=== PATIENT | female | born 1970 | race African-American/Black ===

== ENCOUNTER 2017-06-06 23:56 | Emergency (ER) | payer BC ==
[2017-06-07] MEDS ORDERED: Ketorolac Tromethamine 60 MG/2 ML VIAL ONE (01:45)
[2017-06-07] MEDS ORDERED: Acetaminophen 500 MG TAB ONE (01:45)
[2017-06-07] MEDS ORDERED: Dexamethasone 10 MG/ML VIAL ONE (01:45)
--- NOTE | 2017-06-07 07:57 | RAD ---
THREE VIEWS LUMBAR SPINE: HISTORY: Low back pain for 2 weeks. FINDINGS: AP, lateral, and coned-down views lumbar spine were obtained. A small anterior osteophyte is seen at the L1 and L3 levels. No evidence of acute lumbar spine fractures or bony lesions seen. IMPRESSION: Mid lumbar changes of spondylosis. No evidence of acute lumbar spine pathology is seen. POS: MAURI
== END 2017-06-07 02:28 | disposition home or self-care (01) ==
LOC: ERS 23:56
DX: M62.830 Muscle spasm of back (principal); I10 Essential (primary) hypertension; E11.9 Type 2 diabetes mellitus without complications; M10.9 Gout, unspecified; X50.0XXA Overexertion from strenuous movement or load, initial encounter
CPT/HCPCS: 72100; 96372; J1100; J1885

== ENCOUNTER 2017-08-26 07:53 | Emergency (ER) | payer BC | END 2017-08-26 09:05 | disposition home or self-care (01) | LOC: ERS 07:53 | DX: S16.1XXA Strain of muscle, fascia and tendon at neck level, initial encounter (principal); E11.9 Type 2 diabetes mellitus without complications; I10 Essential (primary) hypertension; M10.9 Gout, unspecified; V89.2XXA Person injured in unspecified motor-vehicle accident, traffic, initial encounter | CPT/HCPCS: 99283 ==

== ENCOUNTER 2017-09-24 08:31 | Emergency (ER) | payer BC ==
[2017-09-24 09:53] LABS: #Basophils 0.1 thou/uL (0.0-0.2); #Eosinphils 0.1 thou/uL (0.0-0.7); #Lymphocytes 1.9 thou/uL (1.20-3.40); #Monocytes 0.3 thou/uL (0.11-0.59); #Neutrophils 2.3 thou/uL (1.40-6.50); %Basophils 1.1 % (0.0-1.0); %Eosinophils 1.2 % (0.0-10.0); %Lymphocytes 41.3 % (21.0-51.0); %Monocytes 7.4 % (0.0-10.0); Hemoglobin 11.6 g/dL (12.0-16.0); Mean Corpuscular HGB CONC 33.2 g/dL (32.0-36.0); Mean Corpuscular Hemoglobin 26.4 pg (27.0-31.0); Mean Corpuscular Volume 79.6 fL (78.0-98.0); Mean Platelet Volume 9.7 fL (7.4-10.4); Platelet Count 162 thou/uL (130-400); RBC Distribution Width 14.4 % (11.5-14.5); White Blood Cell (WBC) Count 4.6 thou/uL (4.8-10.8)
[2017-09-24] MEDS ORDERED: hydrALAZINE 20 MG/ML VIAL ONE (10:04)
[2017-09-24 10:10] LABS: ALT (SGPT) 8 U/L (8-55); AST (SGOT) 14 U/L (5-34); Alkaline Phosphatase 55 U/L (40-150); Anion Gap 15 mmol/L (10-20); BUN (Urea Nitrogen) 8 mg/dL (7.0-18.7); Bilirubin, Total 0.6 mg/dL (0.2-1.2); CK (CPK) 82 U/L (29-168); Calc. Creatinine Clearance 0 mL/min (70-130); Carbon Dioxide 23 mmol/L (22-29); Chloride 107 mmol/L (98-107); Estimated GFR-MDRD Greater than 90; Globulin 3.2 g/dL (2.4-3.5); Glucose 93 mg/dL (70-105); Lipase 22 U/L (8-78); Protein, Total 7.2 g/dL (6.0-8.3); Sodium 141 mmol/L (136-145)
[2017-09-24 10:14] LABS: CKMB 0.6 ng/mL (0-6.6); Troponin I Less than 0.010 ng/mL (< 0.028)
--- NOTE | 2017-09-24 10:24 | RAD ---
PORTABLE CHEST: Date: 09-24-17 Provided Clinical History: Dyspnea. FINDINGS: Cardiac silhouette appears enlarged which may be at least partially on the basis of portable techniqu e. No focal consolidation, pleural fluid, or pneumothorax apparent. Pulmonary vasculature appears wit hin normal limits. IMPRESSION: No evidence for an acute cardiopulmonary process. POS: H
== END 2017-09-24 11:06 | disposition home or self-care (01) ==
LOC: ERS 08:31
DX: R06.02 Shortness of breath (principal); E11.9 Type 2 diabetes mellitus without complications; I10 Essential (primary) hypertension
CPT/HCPCS: 71045; 80053; 82550; 82553; 83690; 83880; 84484; 85025; 93005; 96374; J0360

== ENCOUNTER 2024-11-22 05:59 | Day surgery (SDC) | payer BC ==
[2024-11-14 09:57] VITALS: BMI 34.7
[2024-11-22] MEDS ORDERED: LevoFLOXacin D5W 500 mg (100 mL) BAG ONE (08:24)
[2024-11-22] MEDS ORDERED: PROPOFOL 20 ML ONE ×2 (08:38→09:02)
[2024-11-22] MEDS ORDERED: Rocuronium Bromide 10 MG/ML (10ML VIAL) ONE (08:38)
[2024-11-22] MEDS ORDERED: Lidocaine 1% PF 5 ML VIAL ONE ×2 (08:38→09:18)
[2024-11-22] MEDS ORDERED: Ondansetron PF 4 MG/2 ML Vial ONE ×2 (09:27→11:11)
[2024-11-22] MEDS ORDERED: SUGAMMADEX SODIUM 200 MG/2 ML VIAL ONE (10:12)
== END 2024-11-22 12:52 | disposition home or self-care (01) ==
LOC: SDC 05:59
PROVIDERS: ATTEND Urology
DX: N20.0 Calculus of kidney (principal); E11.9 Type 2 diabetes mellitus without complications; Z90.49 Acquired absence of other specified parts of digestive tract; Z88.5 Allergy status to narcotic agent
CPT/HCPCS: 36416; 74420; 82365; 88300; C1758; C1769; C2617; J1100; J1956; J2250; J2704; J3010